=== PATIENT | male | born 1960 | race Caucasian/White ===

== ENCOUNTER → 2020-04-22 09:09 | Outpatient (BNVA) | payer OTHER, SELFPAY | PROVIDERS: PCP Internal Medicine; Visit Provider Physician Assistant ==

== ENCOUNTER 2020-06-13 07:52 | Day surgery (SDC) | payer OTHER, SELFPAY ==
--- NOTE | 2020-06-11 13:58 | P.CONAN_ITS ---
HPI - Anesthesia Eval Consult details Narrative: 60yo M for Colonoscopy PMFSH Active Problems Active Problems: All Active Problems (Updated 06/09/20 @ 13:04 by Tonia Gould) Encounter for screening colonoscopy (Acute) Past Medical History Medical History History of COVID-19 Family History Family History (Updated 04/22/20 @ 09:15 by Layla Osorio CMA) Mother Diverticulitis Father Hypertension Surgical History Surgical History H/O colonoscopy Social History Social History (Updated 04/22/20 @ 09:12 by Layla Osorio CMA) Household Members: Children Alcohol intake: current Alcohol intake frequency: a few times a week Alcohol type: beer Smoking Status: Never smoker Use of substances other than those prescribed or required for medical reasons: Yes Substance Use Type: Marijuana Substance Use Type Other:: last dose marijuana yesterday Substance Use Frequency: Daily Advance Directives: No Advance Directives Information Provided: Yes Current occupational status: employed 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
[2020-06-13 08:15] VITALS: BMI 22.3
[2020-06-13 08:18] VITALS: BP 145/90; PULSE 87; RESP 16; TEMP 36.8; O2SAT 100
[2020-06-13] MEDS: Lactated Ringers 1,000 ML 100 ML IVCONT (08:23)
--- NOTE | 2020-06-13 08:36 | P.OP_ITS ---
Operative Note Operative Note Date of Service: 06/13/20 Narrative: Pre-op diagnosis: Colon cancer screening Post-op diagnosis: other (Colon polyps, diverticulosis, hemorrhoids) Procedure: COLONOSCOPY TILL CECUM WITH BIOPSIES AND SNARE POLYPECTOMY Consent: Indications for the procedure and potential complications of bleeding, perforation, reaction to medications and missed diagnosis were discussed with the patient and informed consent was obtained. Instrument: Olympus PCF H 190 L variable stiffness pediatric colonoscope Monitoring: Vital signs and clinical assessment, intermittent blood pressure monitoring, continuous EKG monitoring, Pulse oximetry and Carbon Dioxide monitoring were done throughout the procedure. Colon withdrawl time was 21 minutes. Procedure: The patient was placed in the left lateral decubitis position and pre-procedure medications were administered. After a digital rectal examination of the ano-rectum, the video colonoscope was inserted into the rectum and advanced through the colon to the cecum. The colonoscope was slowly withdrawn in a retrograde panoramic fashion and the colon mucosa was carefully examined including a retroflexed view of the rectum. Findings and interventions are described below. Procedure Difficulty: Without difficulty Findings: Terminal Ileum: Not evaluated Cecum: Normal Ascending Colon: A 4-5 mm sessile polyp in proximal ascending colon removed with cold biopsy Transverse Colon: A 10 mm sessile polyp in the transverse colon removed with a cold snare Descending Colon: Normal Sigmoid Colon: A 12-15 mm sessile polyp removed with a hot snare. Moderate diverticulosis Rectum: Normal Ano-rectum: Moderate internal hemorrhoids Colon preparation: Good after some irrigation Impression and Post Procedure Diagnosis: Colonoscopy Findings: Three small to medium sized polyps removed Moderate diverticulosis seen in the sigmoid colon Moderate hemorrhoids on retroflexed exam. Plan: Await pathology results Patient has an appointment on 07/03/20 in the [facility] with HELDER Timmons. Repeat Colonoscopy interval based on path results - in 3 years if polyps are adenomatous and 10 years if polyps are hyperplastic. Above findings were reviewed with the patient and colon polyps and diverticulosis handouts were given in the discharge area Surgeon: Angus Bowen MD Anesthesia: MAC (Sera Lozano CRNA) and spinal Customer Care Professional: Denise Tsai Estimated blood loss (mL): 0 Pathology: other (A: ASCENDING COLON POLYP B: TRANSVERSE COLON POLYP C: SIGMOID POLYP) Condition: stable Disposition: PACU
--- NOTE | 2020-06-13 08:36 | MHC.SHP ---
Pre-Procedural Eval Section A The patient is an INPATIENT: No The History & Physical has been completed within 30 days and I have reviewed it.: No Section B Chief Complaint: Screening Details of Present Illness: Pleasant, healthy 60-year-old male referred for screening colonoscopy. He has no GI complaints. Relevant Family History (Specify if Yes): Yes Relevant Social History: Other (specify) (smokes Marijuana) Present Medications: see Short Stay Collaborative assessment History of Previous Operations: Relevant previous surgery/procedure and date(s) (Colonoscopy) Allergies: Allergies Allergy/AdvReac Type Severity Reaction Status Date / Time No Known Allergies Allergy Verified 04/22/20 09:10 Review of Systems Sugical H&P ROS: Negative: Constitution, Cardiovascular, Respiratory and Gastrointestinal Exam Surgical H&P Exam: Normal: Heart, Normal: Lungs, Normal: Extremities and Normal: Abdomen Plan Diagnosis/Plan: Unchanged I have reviewed the history and physical and performed a pertinent physical examination on my patient. No changes have occurred unless specified.
[2020-06-13 09:41] VITALS: BP 117/73; PULSE 85; RESP 16; TEMP 37.1; O2SAT 99
[2020-06-13 09:56] VITALS: BP 148/89; PULSE 74; RESP 18; TEMP 37.1; O2SAT 100
== END 2020-06-13 11:13 | disposition home or self-care (01) ==
PROVIDERS: PCP Internal Medicine; Visit Provider Internal Medicine Gastroenterology
PROC: 0DJD8ZZ Inspection of Lower Intestinal Tract, Via Natural or Artificial Opening Endoscopic (ICD-10-PCS; CPT 45378; principal; 2020-06-13 09:00)
DX: Z12.11 Encounter for screening for malignant neoplasm of colon (principal); D12.2 Benign neoplasm of ascending colon; D12.3 Benign neoplasm of transverse colon; D12.5 Benign neoplasm of sigmoid colon; K57.30 Diverticulosis of large intestine without perforation or abscess without bleeding; K64.8 Other hemorrhoids; Z86.16 Personal history of COVID-19; F12.90 Cannabis use, unspecified, uncomplicated
CPT/HCPCS: 45385; 45380; 88305

== ENCOUNTER → 2020-07-03 10:35 | Outpatient (BNVA) | payer OTHER, SELFPAY | PROVIDERS: PCP Internal Medicine; Visit Provider Physician Assistant ==

== ENCOUNTER 2023-07-04 08:17 | Outpatient (REF) | payer OTHER, SELFPAY ==
[2023-07-04 14:16] LABS: MANUAL DIFF FLAG NO
[2023-07-04 14:19] LABS: Basophils Percent Auto 0.5 % (0-2); Eosinophils Absolute Auto 0.1 X10*3/uL (0.0-0.4); Eosinophils Percent Auto 1.8 % (0-4); Hematocrit 44.4 % (42.0-52.0); Imm Gran Abs Auto 0.02 X10*3/uL (0.00-0.03); Imm Gran Pct Auto 0.3 % (0.0-0.4); Lymphocytes Absolute Auto 1.7 X10*3/uL (1.2-4.9); Lymphocytes Percent Auto 21.3 % (20-40); Mean Corpuscular HGB Conc 33.8 g/dl (31.0-36.0); Mean Corpuscular Hemoglobin 30.7 pg (27.0-33.0); Mean Corpuscular Volume 90.8 fL (80.0-98.0); Mean Platelet Volume 10.6 fL (9.4-12.4); Monocytes Absolute Auto 0.5 X10*3/uL (0.1-1.2); Monocytes Percent Auto 6.8 % (2-11); Neutrophils Absolute Auto 5.4 x10*3/uL (2.0-8.3); Neutrophils Percent Auto 69.3 % (45-73); Platelet Count 328 X10*3/uL (160-400); Red Blood Count 4.89 X10*6/uL (4.60-5.80); Red Cell Distribution Width 12.7 % (11.0-16.0); White Blood Count 7.8 X10*3/uL (4.8-10.8)
[2023-07-04 14:46] LABS: Alanine Aminotransferase 17 U/L (0-40); Albumin Level 4.4 g/dL (3.5-5.0); Alkaline Phosphatase 64 U/L (39-117); Anion Gap 13 (12-20); Aspartate Amino Transferase 18 U/L (5-37); Bilirubin Total 0.5 mg/dL (0.0-1.0); Blood Urea Nitrogen 20 mg/dL (9-16); Carbon Dioxide 30 mmol/L (22-29); Chloride 100 mmol/L (96-108); Cholesterol 215 mg/dL (<200); Estimated Glomerular Filt Rate > 60; Glucose Random 108 mg/dL (60-115); HDL Cholesterol 87 mg/dL (>40); LDL Cholesterol Calculated 117 mg/dL (<100); Potassium 4.1 mmol/L (3.3-5.1); Sodium 139 mmol/L (135-145); Total Protein 7.2 g/dL (6.5-8.0); Triglycerides 55 mg/dL (<150)
[2023-07-04 14:50] LABS: TSH reflex Free T4 0.22 uIU/mL (0.32-4.0)
[2023-07-04 15:22] LABS: Free T4 (Free Thyroxine) 1.13 ng/dL (0.71-1.85)
== END 2023-07-04 08:18 | disposition home or self-care (01) ==
LOC: HO.CHCLDS 08:17
PROVIDERS: Visit Provider Family Medicine
DX: I10 Essential (primary) hypertension (principal)
CPT/HCPCS: 36415; 80053; 80061; 84439; 84443; 85025

== ENCOUNTER 2023-07-09 09:25 | Outpatient (REF) | payer BC, SELFPAY ==
[2023-07-09 10:59] LABS: Free T4 (Free Thyroxine) 1.18 ng/dL (0.71-1.85); TSH reflex Free T4 0.22 uIU/mL (0.32-4.0)
[2023-07-11 18:49] LABS: Thyroid Peroxidase Antibodies 137 IU/mL (<9)
[2023-07-13 15:53] LABS: Thyroid Stimulating Immunoglob <89 % baseline (<140)
[2023-07-14 20:09] LABS: Thyrotropin Receptor Antibody <1.00 IU/L (<=2.00)
== END 2023-07-09 09:26 | disposition home or self-care (01) ==
LOC: HO.LAB 09:25
PROVIDERS: PCP Internal Medicine; Visit Provider Family Medicine
DX: R79.89 Other specified abnormal findings of blood chemistry (principal)
CPT/HCPCS: 36415; 83520; 84439; 84443; 84445; 86376

== ENCOUNTER 2023-10-26 09:58 | Outpatient (REF) | payer BC, SELFPAY ==
[2023-10-26 14:47] LABS: MANUAL DIFF FLAG NO
[2023-10-26 14:52] LABS: Basophils Percent Auto 0.4 % (0-2); Eosinophils Absolute Auto 0.1 X10*3/uL (0.0-0.4); Eosinophils Percent Auto 1.2 % (0-4); Hematocrit 47.2 % (42.0-52.0); Hemoglobin 15.9 g/dl (14.0-18.0); Imm Gran Abs Auto 0.03 X10*3/uL (0.00-0.03); Imm Gran Pct Auto 0.4 % (0.0-0.4); Lymphocytes Absolute Auto 1.9 X10*3/uL (1.2-4.9); Lymphocytes Percent Auto 27.5 % (20-40); Mean Corpuscular HGB Conc 33.7 g/dl (31.0-36.0); Mean Corpuscular Hemoglobin 30.3 pg (27.0-33.0); Mean Corpuscular Volume 90.1 fL (80.0-98.0); Mean Platelet Volume 10.9 fL (9.4-12.4); Monocytes Absolute Auto 0.5 X10*3/uL (0.1-1.2); Neutrophils Absolute Auto 4.2 x10*3/uL (2.0-8.3); Neutrophils Percent Auto 62.5 % (45-73); Platelet Count 278 X10*3/uL (160-400); Red Blood Count 5.24 X10*6/uL (4.60-5.80); Red Cell Distribution Width 12.3 % (11.0-16.0); White Blood Count 6.8 X10*3/uL (4.8-10.8)
[2023-10-26 15:23] LABS: Alanine Aminotransferase 16 U/L (0-40); Albumin Level 4.5 g/dL (3.5-5.0); Alkaline Phosphatase 73 U/L (39-117); Anion Gap 12 (12-20); Aspartate Amino Transferase 17 U/L (5-37); Bilirubin Total 0.4 mg/dL (0.0-1.0); Blood Urea Nitrogen 17 mg/dL (9-16); Carbon Dioxide 33 mmol/L (22-29); Chloride 99 mmol/L (96-108); Cholesterol 190 mg/dL (<200); Estimated Glomerular Filt Rate > 60; Glucose Random 137 mg/dL (60-115); HDL Cholesterol 96 mg/dL (>40); LDL Cholesterol Calculated 85 mg/dL (<100); Potassium 4.5 mmol/L (3.3-5.1); Sodium 139 mmol/L (135-145); TSH reflex Free T4 0.25 uIU/mL (0.32-4.0); Total Protein 7.4 g/dL (6.5-8.0); Triglycerides 48 mg/dL (<150); Vitamin D 25-OH Total 69.2 ng/mL (>30)
[2023-10-26 18:25] LABS: Free T4 (Free Thyroxine) 1.01 ng/dL (0.71-1.85)
[2023-10-27 04:13] LABS: ~HepC Num1 0.15 S/CO (0.00-0.79); ~Hepatitis C Antibody Nonreactive (Nonreactive)
== END 2023-10-26 09:59 | disposition home or self-care (01) ==
LOC: HO.CHCLDS 09:58
PROVIDERS: Visit Provider Internal Medicine
DX: R53.83 Other fatigue (principal)
CPT/HCPCS: 36415; 80053; 80061; 82306; 84439; 84443; 85025; 86803

== ENCOUNTER 2024-02-03 07:56 | Outpatient (AMB) | payer BC, SELFPAY ==
[2024-02-03 08:03] VITALS: BP 152/94; PULSE 76; O2SAT 98; BMI 22.2
--- NOTE | 2024-02-03 08:03 | A.OFFVIS_ITS ---
Vital Signs 02/03/24 08:03 Height 5 ft 11 in Weight 159 lb 2.78 oz BMI 22.2 BP 152/94 H Blood Pressure Location Rt brachial Position Sitting Pulse 76 Pulse Source Pulse Oximeter Pulse Oximetry (%) 98 Oxygen Delivery Method Room Air Intake Visit Reasons: Colonoscopy Screening Intake Note: Eleazar presents in office today for a scheduled colo scrn. CC; No significant changes. ? Recent hx of relevant surgeries? Recall colo q3 yrs per RM. Pharmacy verified. [employer] Required: No Allergies No Known Allergies Allergy (Verified 02/03/24 08:03) HPI HPI Colonoscopy Screening: Details: LAST VISIT: Colonoscopy Findings: Three small to medium sized polyps removed Moderate diverticulosis seen in the sigmoid colon Moderate hemorrhoids on retroflexed exam. Plan: Repeat Colonoscopy interval based on path results - in 3 years if polyps are adenomatous and 10 years if polyps are hyperplastic. Above findings were reviewed with the patient and colon polyps and diverticulosis handouts were given in the discharge area PATHOLOGY RESULTS: Diagnosis A. Colon, ascending, polypectomy: Tubular adenoma; negative for high grade dysplasia and carcinoma. B. Colon, transverse, polypectomy: Tubular adenoma; negative for high grade dysplasia and carcinoma. C. Colon, sigmoid, polypectomy: Tubular adenoma; negative for high grade dysplasia and carcinoma TODAY'S VISIT Patient denies any gastrointestinal symptoms in the past or at present.? Family history of CRC. Patient had colonoscopy 3 years ago and had tubular adenoma without high-grade dysplasia or carcinoma..? Denies history of difficulty with sedation or anesthesia in the past.? Negative for history of sleep apnea.? Denies any history of cardiac, renal, pulmonary, or hepatic disease.?? No history of infectious? diseases like hepatitis A, B, C, HIV or tuberculosis.? 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 Review of Systems Const Denies weight gain and Denies weight loss ENT Reports no additional complaints, Denies dysphagia and Denies odynophagia Card Reports no additional complaints Resp Reports no additional complaints GI Denies abdominal pain, Denies belching, Denies melena, Denies bloating, Denies change in bowel habits, Denies dysphagia, Denies excessive flatus, Denies dyspepsia, Denies heartburn, Denies diarrhea, Denies loose stools, Denies nausea, Denies odynophagia and Denies vomiting Reports no additional complaints Musc Reports no additional complaints Neuro Reports no additional complaints Psych Reports no additional complaints Endo Reports no additional complaints Physical Exam Vital Signs: Last Vital Signs Pulse 76 02/03/24 08:03 BP 152/94 H 02/03/24 08:03 Pulse Ox 98 02/03/24 08:03 Oxygen Delivery Method Room Air 02/03/24 08:03 BMI result Body Mass Index 22.2 Const General: healthy appearing, no acute distress and well developed Nutritional Appearance: well nourished Orientation/consciousness: patient oriented x3 Resp Effort & Inspection: normal respiratory effort, able to speak in complete sentences, no tracheal deviation and symmetric chest movement Auscultation: clear to auscultation bilaterally Cardio Rate: regular rate GI Inspection: Yes normal to inspection and No distended Palpation (GI): Soft to palpation, not firm, nontender and No hepatosplenomegaly present Auscultation: normal bowel sounds General: Yes no CVA tenderness Back/Spine/Pelvis Back: no CVA tenderness Skin General skin exam: elasticity normal, turgor normal and dry skin Neuro General: patient oriented x3 Psych Appearance: grossly normal Mental Status: mental status grossly normal Assessment & Plan Assessment & Plan (1) Tubular adenoma of colon: Code(s): D12.6 - Benign neoplasm of colon, unspecified Category: Medical (2) Encounter for screening colonoscopy: Code(s): Z12.11 - Encounter for screening for malignant neoplasm of colon Category: Medical Plan Patient denies any GI, cardiac or respiratory symptoms.? Denies any issues with anesthesia in the past.? Denies any history of sleep apnea.? No history infectious diseases in the past or present.? Not on any anticoagulation therapy.? Family history of CRC. Personal history of tubular adenoma in 2020. Patient denies melena, hematochezia, unintentional weight loss or ribbon like stools.? Discussed at length the pre-procedure,? prep, diet & medications as well as what to expect prior, during and after the procedure.?? Stressed the importance of good bowel prep.? Recommended the use of Vaseline or Calmoseptine OTC & baby wipes with bowel movements to promote comfort.? ?Patient verbalizes understanding and agrees to plan of care.? He was given the opportunity to ask questions and all questions answered.? We will see him after the procedure.? Medications: New bisacodyl (Dulcolax (bisacodyl)) take 4 tabs at noon the day before your colonoscopy 20 mg (4 x 5 mg) PO ONCE 1 day 4 tabs 0RF Z12.11 - Encounter for screening for malignant neoplasm of colon polyethylene glycol 3350 (Miralax) As directed by gastroenterology department at [facility] 238 grams PO ONCE 238 grams 0RF Z12.11 - Encounter for screening for malignant neoplasm of colon Coding Level of Care Code New Pt Level 3 (70116) Diagnoses Tubular adenoma of colon D12.6 Encounter for screening colonoscopy Z12.11 Time Spent (min) 40 Comment 30 minutes spent with patient and additional 10 minutes spent reviewing his records
== END 2024-02-03 08:31 | disposition home or self-care (01) ==
PROVIDERS: PCP Internal Medicine; Visit Provider Nurse Practitioner Family
DX: D12.6 Benign neoplasm of colon, unspecified (principal); Z12.11 Encounter for screening for malignant neoplasm of colon
CPT/HCPCS: 99203

== ENCOUNTER → 2024-02-03 07:56 | Outpatient (BNVA) | payer BC, SELFPAY | PROVIDERS: PCP Internal Medicine; Visit Provider Nurse Practitioner Family ==

== ENCOUNTER 2024-05-03 07:24 | Day surgery (SDC) | payer BC, SELFPAY ==
[2024-05-01 14:37] VITALS: BMI 22.2
--- NOTE | 2024-05-02 09:33 | HO.ANESPROP2 ---
Documented by User: Winter Mcwilliams NP 05/02/24 09:33 HPI - Anesthesia Eval Consult details Narrative: 64yo M for Colonoscopy [facility] Active Problems Active Problems: All Active Problems Diverticulosis of colon (Acute) Encounter for screening colonoscopy (Acute) Hemorrhoids (Acute) Tubular adenoma of colon (Acute) Past Medical History Medical History (Updated 05/01/24 @ 14:38 by Tonia Gould RN) Diverticulosis HTN (hypertension) Hemorrhoids Tubular adenoma of colon Family History Family History Mother Diverticulitis Father Hypertension Surgical History Surgical History (Updated 05/01/24 @ 14:37 by Tonia Gould RN) H/O colonoscopy Social History Social History Household Members: Children Household Members Other:: Daughter Alcohol intake: current Alcohol intake frequency: a few times a month Substance Use Type: Marijuana Advance Directives: No Advance Directives Information Provided: Yes Current occupational status: employed 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 Meds Allergies Allergy/AdvReac Type Severity Reaction Status Date / Time No Known Allergies Allergy Verified 05/03/24 07:37 Home Medications ?Medication ?Instructions ?Recorded ?Confirmed ?Last Taken ?Type lisinopril 5 mg tablet 5 mg PO DAILY 02/03/24 05/01/24 Unknown History Exam Height,Weight and Vital Signs: Height 5 ft 11 in Weight 72.121 kg Assessment and Plan Assessment Anesthesia Assessment: Chart Reviewed Documented by User: Colton Briggs MD 05/03/24 07:57 [facility] Past Medical History Medical History (Updated 05/01/24 @ 14:38 by Tonia Gould RN) Diverticulosis HTN (hypertension) Hemorrhoids Tubular adenoma of colon Family History Family History Mother Diverticulitis Father Hypertension Family history of problems with anesthesia: No Surgical History Surgical History (Updated 05/01/24 @ 14:37 by Tonia Gould RN) H/O colonoscopy History of Problems with Anesthesia: No Social History Social History Household Members: Children Household Members Other:: Daughter Alcohol intake: current Alcohol intake frequency: a few times a month Substance Use Type: Marijuana Advance Directives: No Advance Directives Information Provided: Yes Current occupational status: employed 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 Meds Allergies Allergy/AdvReac Type Severity Reaction Status Date / Time No Known Allergies Allergy Verified 05/03/24 07:37 Home Medications ?Medication ?Instructions ?Recorded ?Confirmed ?Last Taken ?Type lisinopril 5 mg tablet 5 mg PO DAILY 02/03/24 05/01/24 Unknown History Exam Airway Mallampati Class: I TM Dist: >3cm Neck ROM: Full Loose/Missing/Broken Teeth: No Heart: ok Lungs: ok Assessment and Plan Assessment Anesthesia Assessment: Anesthesia Plan Discussed Final Anesthetic Review Family History of Problems with Anesthesia: No History of Problems with Anesthesia: No NPO: Yes ASA Class: II Final Preanesthetic Review: No Changes in Pt Med Stat, Meds/Allgs Chart Reviewed, Consent Obtained/Reviewed and Anes Risks/Benef Reviewed Patient Risk: Low Procedure Risk: Low Anesthetic Plan Anesthetic Plan: MAC: and Agree w/ Assess. and Plan Disposition: Standard PACU
[2024-05-03 07:29] VITALS: BMI 21.7
[2024-05-03] MEDS: Lactated Ringers 1,000 ML 100 ML IVCONT (07:42)
--- NOTE | 2024-05-03 07:43 | MHC.SHP ---
Pre-Procedural Eval Section A - 24 Hr Update-Section A only Date of Service: 05/03/24 Section B - Complete if H&P > 30 days Chief Complaint: screening Relevant Family History (Specify if Yes): No Relevant Social History: Other (specify) (thc) Present Medications: see Short Stay Collaborative assessment Medical History: Significant History (Diverticulosis HTN (hypertension) Hemorrhoids Tubular adenoma of colon) History of Previous Operations: Relevant previous surgery/procedure and date(s) (H/O colonoscopy) Allergies: Allergies Allergy/AdvReac Type Severity Reaction Status Date / Time No Known Allergies Allergy Verified 05/03/24 07:37 Review of Systems Sugical H&P ROS: Negative: Constitution, Cardiovascular, Respiratory, Neurological, Psychiatric, Hem-Onc, Allergic/Immunologic, Gastrointestinal, Genitourinary, Musculoskeletal, Integumentary, Endocrine and Eyes/Ears/Nose/Throat Exam Surgical H&P Exam: Normal: HEENT, Normal: Heart, Normal: Lungs, Normal: Extremities, Normal: Abdomen, Normal: Skin and Normal: Neurological Plan Diagnosis/Plan: Unchanged I have reviewed the history and physical and performed a pertinent physical examination on my patient. No changes have occurred unless specified. Time Spent With Patient Time: Total time managing care of this patient today ____ minutes.
[2024-05-03 07:50] VITALS: BP 145/91; PULSE 82; RESP 18; TEMP 36.7; O2SAT 99
--- NOTE | 2024-05-03 08:48 | P.OPN-COLO_ITS ---
Colonoscopy Operative Note Operative Note Date of Service: 05/03/24 Narrative: Operative Information Procedure Description: Colonoscopy Indication: screening, hx of polyps Anesthesia: MAC COLONOSCOPY Instrument: Olympus variable stiffness pediatric scope 190L Colonoscopy Monitoring: Vital signs and clinical assessment, continuous EKG monitoring, Pulse oximetry, Carbon Dioxide monitoring and blood pressure monitoring were done throughout the procedure. Colon withdrawal time was 22 minutes. Procedure: The patient was placed in the left lateral decubitis position and pre-procedure medications were administered. After a digital rectal examination of the ano-rectum, the video colonoscope was inserted into the rectum and advanced through the colon to the cecum/TI. The colonoscope was slowly withdrawn in a retrograde panoramic fashion and the colon mucosa was carefully examined including a retroflexed view of the rectum. Findings and interventions are described below. Procedure Difficulty: moderate Findings: Terminal Ileum-normal Cecum: 4-5 mm sessile polyp removed with forceps, x 1 clip applied to close defect Ascending Colon: normal Transverse Colon -normal Descending Colon:normal Sigmoid Colon: moderate diverticulosis, 6-8 mm sessile polyp removed with cold snare Rectum: Retroflexion with small internal hemorrhoids seen, grade I, x 5 sessile polyps 6-9 mm removed with cold snare Anorectum - normal Intervention: cold snare, cold forceps, clip Colon preparation: [place] Bowel Preparation Scale Right colon; 2 Transverse colon: 2 Left colon; 2 (0 = Unprepared colon segment with mucosa not seen due to solid stool that cannot be cleared. 1 = Portion of mucosa of the colon segment seen, but other areas of the colon segment not well seen due to staining, residual stool and/or opaque liquid. 2 = Minor amount of residual staining, small fragments of stool and/or opaque liquid, but mucosa of colon segment seen well. 3 = Entire mucosa of colon segment seen well with no residual staining, small fragments of stool or opaque liquid) Impression and Post Procedure Diagnosis: diverticulosis colon polyps x 7 internal hemorrhoids Plan: High fiber diet leaflet Avoid straining at stool, epsom salts and sitz bath, anusol supps or cream Repeat Colonoscopy in 3-4 years or earlier if clinically indicated Above findings were reviewed with the patient and relevant handouts were provided if indicated.
[2024-05-03 08:54] VITALS: BP 89/64; PULSE 82; RESP 20; TEMP 36.6; O2SAT 96
[2024-05-03 09:09] VITALS: BP 130/87; PULSE 88; RESP 16; TEMP 36.3; O2SAT 99
== END 2024-05-03 09:42 | disposition home or self-care (01) ==
PROVIDERS: PCP Internal Medicine; Visit Provider Internal Medicine Gastroenterology
PROC: 0DJD8ZZ Inspection of Lower Intestinal Tract, Via Natural or Artificial Opening Endoscopic (ICD-10-PCS; CPT 45378; principal; 2024-05-03 09:10)
DX: Z12.11 Encounter for screening for malignant neoplasm of colon (principal); K63.5 Polyp of colon; K62.1 Rectal polyp; K57.30 Diverticulosis of large intestine without perforation or abscess without bleeding; K64.0 First degree hemorrhoids; Z86.0101 Personal history of adenomatous and serrated colon polyps; I10 Essential (primary) hypertension; Z79.899 Other long term (current) drug therapy
CPT/HCPCS: 45385; 45380; 88305; J1610; J2003; J2704

== ENCOUNTER → 2024-05-03 07:24 | Outpatient (BNV) | payer BC, SELFPAY | PROVIDERS: PCP Internal Medicine; Visit Provider Internal Medicine Gastroenterology | DX: Z12.11 Encounter for screening for malignant neoplasm of colon (principal); Z86.0100 Personal history of colon polyps, unspecified; K63.5 Polyp of colon; K62.1 Rectal polyp; K57.30 Diverticulosis of large intestine without perforation or abscess without bleeding; K64.0 First degree hemorrhoids | CPT/HCPCS: 45380; 45385 ==

== ENCOUNTER 2025-02-26 08:12 | Outpatient (REF) | payer BC, SELFPAY ==
--- OUTSIDE RECORDS SUMMARY | 2025-02-26 09:44 | XMS_ITS | Clinical Summary ---
Author Organization [employer] Address [address] [facility] 7t [place] [address] Care Team Providers Care Vibration Analyst Name Role Phone Doris Negron MD Primary Care Provider [phone] Allergies No known active allergies Medications Blood Pressure kitIndications:El evated BP without diagnosis of hypertension Check bp twice a day 1 kit 2 Active cyclobenzaprine (Flexeril) 10 MG tabletIndications :Right sided sciatica Take 1 tablet (10 mg) by mouth 3 times daily for 10 days. 30 tablet 5 Active lisinopril 5 MG tabletIndications :Primary hypertension TAKE 1 TABLET DAILY 90 tablet 1 5 Active Diclofenac Sodium 1 % gelIndications:Ri ght lateral epicondylitis To apply to the affected area 3 times a day 100 g 5 Active carbamide peroxide (Debrox) 6.5 % otic solutionIndicatio ns:Bilateral impacted cerumen Administer 5-10 drops into affected ear(s) 2 times daily for 4 days. 30 mL 5 025 Active Problems Problem Noted Date Diagnosed Date Primary hypertension 01/18/2023 Assessment & Plan (06/15/2023 2:42 AM EDT): -Refilled Lisinopril; ordered labs to reassess with plan to change treatment plan if needed based on results Labs: CBC, CMP, TSH, Lipid panel, albumin Diverticular disease 04/27/2022 Elevated BP without diagnosis of hypertension Overview (02/24/2022): Repeat BP taken rosario was 150/90. Agrees to RTC in 4 weeks with BP log , BP kit sent [facility] pharmacy for him to cotton picker, low salt diet recommended as well.No Assessment & Plan (11/11/2022 9:09 AM EDT): Pt reports his BP is returning to normal with exercise Decreased dose to 1 tablet 12.5 mg daily Basal cell carcinoma of skin 02/13/2020 Hypercholesterolemia 02/13/2020 Polyp of colon 02/13/2020 Plantar fasciitis 07/28/2017 Alcoholism (CMS/HCC) 07/27/2013 Encounters Date Type Department Care Team Description 02/18/2025 9:30 AM EST Office Visit [facility] [address] [place] [address] Doris Negron MD Primary hypertension (Primary Dx); Hypercholesterolemia; Right lateral epicondylitis; Acute pain of right knee; Decreased hearing of both ears; Bilateral impacted cerumen; Seborrheic keratosis 02/18/2025 Travel 02/11/2025 Patient Outreach [facility] [address] [place] [address] Doris Negron MD Pre-visit Planning ([facility] to reach [facility] ) 02/11/2025 Travel 01/07/2025 Refill [facility] [address] [place] [address] Doris Negron MD Primary hypertension from Last 3 Months Immunizations Immunization Administration Dates Next Due Influenza Injectable Quadriv alant Preservative Free IIV4 MDCK 12/30/2022,12/09/2021,12/04/2018 Influenza injectable quadriv alent IIV4 with preservative 11/10/2017 Influenza injectable quadriv alent preservative free 12/02/2020,12/11/2019,12/24/2016,2015 Influenza, High Dose Seasona l, Preservative Free 12/26/2023 Influenza, IIV3, injectable 12/31/2009 Influenza, seasonal, injecta ble, preservative free 12/22/2016,01/10/2015 Pneumococcal Conjugate PCV 20 10/26/2023 Tdap 06/23/2018,10/31/2009 Zoster, Recombinant 05/02/2020,12/11/2019 Family History Medical History Relation Name Comments Alcohol abuse Brother Dementia Brother Arrhythmia Father pace maker Relation Name Status Comments Brother Father pace maker Mother Other Social History Tobacco Use Types Packs/Day Years Used Date Smoking Tobacco: Never Smokeless Tobacco: Never Tobacco Cessation:Counseling Given: Not Answered Alcohol Use Standard Drinks/Week Comments Yes 2 (1 standard drink = 0.6 oz pur e alcohol) Alcohol Answer Date Recorded Q1: How often do you have a drink containing alc ohol? 5 12/26/2023 Q2: How many drinks containi ng alcohol do you have on a typical day when you are drinking? 2 12/26/2023 Q3: How often do you have six or more drinks on one occasion? 2 12/26/2023 Depression Answer Date Recorded Patient Health Questionnaire-9 Score 0 02/18/2025 Patient Health Questionnaire-9 Score 0 02/18/2025 Last PHQ-9: Questionnaire Data Not on file 1 04/21/2024 Housing Stability Answer Date Recorded What is your housing situation today? I have nicolasneri rosas 02/18/[address] you li ve. Do you have problems with any of the following? None of the above 02/18/2025 Food Insecurity Answer Date Recorded Within the past 12 months, y ou worried that your food would run out before you got money to buy more: Never True 02/18/2025 Within the past 12 months,th e food you bought just didn't last and you didn't have enough money to get more: Never True Transportation Answer Date Recorded In the past 12 months, has l ack of transportation kept you from medical appts, meetings, work or from getting things needed for daily living? No 02/18/2025 Utilities Answer Date Recorded In the past 12 months, has t he electric, gas, oil or water company threatened to shut off services in your home? No 02/18/2025 Depression Answer Date Recorded Patient Health Questionnaire-2 Score 0 02/18/2025 Internet Access Answer Date Recorded Internet Access Q1 Yes 02/18/2025 Internet Access Q2 Not on file 02/18/2025 Sex and Gender Information Value Date Recorded Sex Assigned at Male 12/28/2021 10:21 AM EDT Legal Sex Male 10:21 AM EDT Gender Identity Male 12/28/2021 10:21 AM EDT Sexual Orientation Straight 12/28/2021 10 :21 AM EDT Last Filed Vital Signs Vital Sign Reading Time Taken Comments Blood Pressure 131/73 02/18/2025 9:32 AM EST Pulse 86 02/18/2025 9:32 AM EST Temperature 36.8 C (98.2 F) 02/18/2025 9:32 AM EST Respiratory Rate 20 02/18/2025 9:32 AM EST Oxygen Saturation 97% 02/18/2025 9:32 AM EST Inhaled Oxygen Concentration - - Weight 71.7 kg (158 lb) 02/18/2025 9:32 AM EST Height 177.8 cm (5' 10 ) 02/18/2025 9:32 AM EST Body Mass Index 22.67 02/18/2025 9:32 AM EST Plan of Treatment Health Maintenance Due Date Last Done Comments CT Colonography 1960 FIT DNA/Cologuard 1960 FIT 1960 FOBT 1960 Sigmoidoscopy 1960 Alcohol/Substance Use Screening 1970 Derm Melanoma Skin Check 04/13/2024 10/12/2023 COVID-19 Vaccine ( season) 2025 12/19/2024, 01/28/2024, 12/30/2022, Additional history exists Depression Screening 02/18/2026 02/18/2025, 03/16/19 23 SDOH Screening 02/18/2026 02/18/2025 Tobacco Screening 02/18/2026 02/18/2025 Colonoscopy 05/04/2027 05/03/2024, 1207/2023, 06/14/2020 Colorectal Cancer Screening 05/04/2027 DTaP/Tdap/Td Vaccines (3 - Td or Tdap) 06/23/2028 06/23/2018, 10/31/2009 Lipid Panel 10/25/2028 10/26/2023, 05/0 07/2023, 12/02/2020 RSV Patients and Patients Aged 60 years or older (1 - 1-dose 75+ series) 2033 Zoster Vaccines Completed 05/02/2020, 12/11/2019 Hepatitis C Screening Completed 10/26/2023 Pneumococcal Vaccine: 50+ Years Completed 10/26/2023 Influenza Vaccine Completed 12/19/2024, , 12/30/2022, Additional history exists HIB Vaccines Aged Out No longer eligi ble based on patient's age to complete this topic HPV Vaccines Aged Out No longer eligi ble based on patient's age to complete this topic Hepatitis A Vaccines Aged Out No long er eligible based on patient's age to complete this topic Hepatitis B Vaccines Aged Out No long er eligible based on patient's age to complete this topic IPV Vaccines Aged Out No longer eligi ble based on patient's age to complete this topic Meningococcal B Vaccine Aged Out No l onger eligible based on patient's age to complete this topic Meningococcal Vaccine Aged Out No carine elías eligible based on patient's age to complete this topic RSV under 20 months Aged Out No longe r eligible based on patient's age to complete this topic Rotavirus Vaccines Aged Out No longer eligible based on patient's age to complete this topic Procedures Procedure Name Priority Date/Time Associated Diagnosis Comments COLONOSCOPY Routine 05/03/2024 HEPATITIS C AB W/REFL TO HCV RNA, QN, PCR Routine 10/26/2023 9:59 AM EDT Other fatigue LIPID PANEL, STANDARD Routine 10/26/2023 9:59 AM EDT Other fatigue from Last 3 Months or Most Recently Relevant to Health Maintenance Results * Colonoscopy (05/03/2024) Colonoscopy Normal Normal Narrative Ping Reina - 05/03/2024 Repeat Colonoscopy in 3-4 years or earlier if clinically indicated , see external hospital admission note with matching date us Historical Provider HEALTH MAINTENANCE Final Result * Hepatitis C Antibody with Reflex to HCV, RNA, Quantitative, Real-Time PCR (10/26/2023 9:59 AM EDT) Hepatitis C Antibody Nonreactive Nonreactive [facility] Comment:Antibodies to HCV no t detected; does not exclude early acuteHCV infection. Blood Venous blood specimen / Unknown 10/26/2023 9:59 AM EDT 10/26/2023 2:43 PM EDT us Doris Negron MD LAB BLOOD ORDERABLES Final Result Performing Organization Address [facility]/ZIP Co de Phone Number [facility] [address] [place] [phone] * Lipid Panel, Standard (10/26/2023 9:59 AM EDT) Triglycerides 48 <150 mg/dL [facility] Comment:Desirable Triglyceri de: less than 150 mg/dLBorderline High Triglyceride 150-199 mg/dLHigh Triglyceride: 200-499 mg/dLVery High Triglyceride: greater than or equal to 5OO mg/dL Cholesterol 190 <200 mg/dL [facility] Comment:Desirable Cholestero l: less than 200 mg/dLBorderline High Cholesterol: 200-239 mg/dLHigh Cholesterol: greater than 239 mg/dL LDL Cholesterol Calculated 85 <100 mg/dL [facility] Comment:Desirable LDL: less than 100 mg/dLNear Optimal/Above Optimal LDL: 110- 129 mg/dLBorderline High LDL: 130-159 mg/dLHigh LDL: 160-189 mg/dLVery High LDL: greater than or equal to 190 mg/dL HDL Cholesterol 96 >40 mg/dL [facility] Comment:Desirable HDL: great er than 40 mg/dL Note: This HDL assay may give artificially low results in patients with liver disease. Blood Venous blood specimen / Unknown 10/26/2023 9:59 AM EDT 10/26/2023 2:43 PM EDT us Doris Negron MD LAB BLOOD ORDERABLES Final Result Performing Organization Address City/[facility]/ZIP Co de Phone Number [facility] [address] [place] [phone] from Last 3 Months or Most Recently Relevant to Health Maintenance Insurance [facility] PPO Care Teams Vibration Analyst Relationship Specialty Start Date End Date Doris Negron MD [address] [place] [phone] PCP - General Internal Medicine 02/13/20
--- OUTSIDE RECORDS SUMMARY | 2025-02-26 09:44 | XMS_ITS | Encounter Summary ---
Author Organization [employer] Address [address] [facility] 7t [place] [address] Care Team Providers Care Interactive Account Manager Name Role Phone Doris Negron MD Primary Care Provider [phone] Encounter Details Date Type Department Care Team (Late st Contact Info) Description 02/15/2023 Orders Only [facility] [address] [place], [place] [phone] Doris Negron MD [address] [place] [address] Muscle spasm of back (Primary Dx) Social History Tobacco Use Types Packs/Day Years Used Date Smoking Tobacco: Never Smokeless Tobacco: Never Alcohol Use Standard Drinks/Week Comments Yes 2 (1 standard drink = 0.6 oz pur e alcohol) Housing Stability Answer Date Recorded What is your housing situation today? I have nicolasneri rosas 01/18/[address] you li ve. Do you have problems with any of the following? None of the above 01/18/2023 Food Insecurity Answer Date Recorded Within the past 12 months, y ou worried that your food would run out before you got money to buy more: Never True 01/18/2023 Within the past 12 months,th e food you bought just didn't last and you didn't have enough money to get more: Never True Transportation Answer Date Recorded In the past 12 months, has l ack of transportation kept you from medical appts, meetings, work or from getting things needed for daily living? No 01/18/2023 Utilities Answer Date Recorded In the past 12 months, has t he [employer], oil or water company threatened to shut off services in your home? No 01/18/2023 Sex and Gender Information Value Date Recorded Sex Assigned at Male 12/28/2021 10:21 AM EDT Legal Sex Male 10:21 AM EDT Gender Identity Male 12/28/2021 10:21 AM EDT Sexual Orientation Straight 12/28/2021 10 :21 AM EDT documented as of this encounter Plan of Treatment Not on file documented as of this encounter Procedures Procedure Name Priority Date/Time Associated Diagnosis Comments T4, FREE Routine 10/26/2023 9:59 AM EDT Muscle spasm of back T4, FREE Routine 07/09/2023 9:36 AM EDT Muscle spasm of back documented in this encounter Results * T4, Free (10/26/2023 9:59 AM EDT) Free T4 (Free Thyroxine) 1.01 0.71 - 1.85 ng/dL [facility] 10/26/2023 9:59 AM EDT 10/26/2023 2:43 PM EDT us Doris Negron MD LAB BLOOD ORDERABLES Final Result Performing Organization Address [facility] Co de Phone Number [facility] [address] [place] [phone] * T4, Free (07/09/2023 9:36 AM EDT) Free T4 (Free Thyroxine) 1.18 0.71 - 1.85 ng/dL [facility] 07/09/2023 9:36 AM EDT 07/09/2023 9:36 AM EDT us Tuyet Lunsford MD LAB BLOOD ORDERABLES Final Re sult Performing Organization Address [facility]/ZIP Co de Phone Number [facility] [address] [place] [phone] documented in this encounter Visit Diagnoses Diagnosis Muscle spasm of back- Primary documented in this encounter Care Teams Interactive Account Manager Relationship Specialty Start Date End Date Doris Negron MD [address] [place] [phone] PCP - General Internal Medicine 02/13/20 documented as of this encounter
--- OUTSIDE RECORDS SUMMARY | 2025-02-26 09:44 | XMS_ITS | Encounter Summary ---
Author Organization [employer] Address [address] [facility] 7 [place] [address] Care Team Providers Care Barge Master Name Role Phone Doris Negron MD Primary Care Provider [phone] Reason for Visit * Reason Onset Date Comments Order 03/08/2024 Encounter Details Date Type Department Care Team (Late st Contact Info) Description 03/08/2024 Telephone [facility] [address] [place] [address] Doris Negron MD [address] [place] [address] Order Social History Tobacco Use Types Packs/Day Years [...] Answer Date Recorded Patient Health Questionnaire-9 Score 2 10/26/2023 Patient Health Questionnaire-9 Score 2 10/26/2023 Last PHQ-9: Questionnaire Data Not on file 0 10/26/2023 Housing Stability Answer Date Recorded What is your housing situation today? I have nicolas rosas 01/18/[address] you [...] off services in your home? No 01/18/2023 Depression Answer Date Recorded Patient Health Questionnaire-2 Score 0 10/26/2023 Internet Access Answer Date Recorded Internet Access Q1 Yes 10/28/2023 Internet Access Q2 Not on file 10/28/2023 Sex and Gender Information Value Date Recorded Sex Assigned at Male 12/28/2021 10:21 AM EDT Legal Sex Male 10:21 AM EDT Gender Identity Male 12/28/2021 10:21 AM EDT Sexual Orientation Straight 12/28/2021 10 :21 AM EDT documented as of this encounter Miscellaneous Notes * Telephone Encounter - Leonie Larsen - 03/09/2024 9:45 AM EST Referral refaxed * Telephone Encounter - Temitope Amos - 03/08/2024 3:38 PM EST Tc from [facility] pres[facility] for Physical Therapy. Fax number: [phone] documented in this encounter Plan of Treatment Not on file documented as of this encounter Visit Diagnoses Not on filedocumented in this encounter Additional Health Concerns Assessment Noted Time PHQ-9 Depression Total Score: 2 10/26/19 24 9:25 AM EDT documented as of this encounter Care Teams Barge Master Relationship Specialty Start Date End Date Doris Negron MD [address] [place] [phone] PCP - General Internal Medicine 02/13/20 documented as of this encounter
--- OUTSIDE RECORDS SUMMARY | 2025-02-26 09:44 | XMS_ITS | Encounter Summary ---
Author Organization [employer] Address [address] [facility] 7t [place] [address] Care Team Providers Care Emergency Veterinarian Name Role Phone Doris Negron MD Primary Care Provider [phone] Reason for Visit * Reason Comments Med Refill Encounter Details Date Type Department Care Team ([facility] Contact Info) Description 06/14/2023 Refill [facility] [address] [place], [place] [phone] Doris Negron MD [address] [place] [address] Primary hypertension Social History Tobacco Use Types Packs/Day Years [...] documented as of this encounter Visit Diagnoses Diagnosis Primary hypertension Unspecified essential hypertension documented in this encounter Care Teams Emergency Veterinarian Relationship Specialty Start Date End Date Doris Negron MD [address] [place] [phone] PCP - General Internal Medicine 02/13/20 documented as of this encounter
--- OUTSIDE RECORDS SUMMARY | 2025-02-26 09:44 | XMS_ITS | Encounter Summary ---
Author Organization [employer] Address [address] [facility] 7t [place] [address] Care Team Providers Care Power Barker Operator Name Role Phone Doris Negron MD Primary Care Provider [phone] Reason for Referral * Consultation (Routine) - Closed Specialty Diagnoses / Procedures Referred By Contac t Referred To Contact Endocrinology Diagnoses Other fatigue Low TSH level Doris Negron MD [address] [place] [address] Phone: tel: fax: [facility] [address] [facility] 3rd [address] [place], [place] Phone: tel: fax: Referral ID Status Reason Start Date Expiration Date V isits Requested Visits Authorized [id number] Closed Specialty Services Required 10/28/2023 10/27/2024 1 1 Encounter Details Date Type Department Care Team (Late st Contact Info) Description 10/28/2023 Orders Only [facility] [address] [place], [place] [phone] Doris Negron MD [address] [place], [place] [phone] Other fatigue (Primary Dx); Low TSH level Social History Tobacco Use Types Packs/Day Years Used Date Smoking Tobacco: Never Smokeless Tobacco: Never Alcohol Use Standard Drinks/Week Comments Yes 2 (1 standard drink = 0.6 oz pur e alcohol) Depression Answer Date Recorded Patient Health Questionnaire-9 [...] Procedure Name Priority Date/Time Associated Diagnosis Comments HEMATOXYLIN AND EOSIN STAIN Routine 05/03/2024 8:31 AM EST Other fatigue AMB REFERRAL TO ENDOCRINOLOGY Routine 11/30/2023 Other fatigue Low TSH level documented in this encounter Results * Hematoxylin and Eosin Stain (05/03/2024 8:31 AM EST) 05/03/2024 8:31 AM EST 05/03/2024 9:57 AM EST Narrative [facility] - 05/04/2024 5:25 PM EST ----- ------- Name: Eleazar Leyva Age/Sex: 64/M : 1960 Unit#: [id number] Attend Dr: Jack Roque MD Re05/03/24 Status: [facility] Location: [facility] Disch: ----- ------- SPEC : [id number] RECD: 05/03/24 STATUS: AURY MENJIVAR NUM: [id number] CHARLES: 05/03/[address] [facility] [address]: Jack Roque MD ENTERED: 05/03/24 SP TYPE: Surgical OTHR DR: Doris Negron MD ORDERED: HE Stain/9, Gross Micro L4/3 Diagnosis A. Cecum, polypectomy: Colonic mucosa with mild surface hyperplastic changes. B. Colon, sigmoid, polypectomy: Colonic mucosa with mild surface hyperplastic changes. C. Rectum, polypectomies: Hyperplastic mucosal polyps. Clinical History Pre-Op Dx: Screening Post-Op Dx: Colon polyps, diverticulosis, hemorrhoids Microscopic Description A-C. Microscopic sections reviewed. Material Received A. Cecal polyp B. Sigmoid polyp C. Rectal polyps Gross Description Received in three parts. Part A: Received in formalin labeled cecal polyp is a 0.2 cm rogers irregular tissue fragment, submitted in toto in a cassette labeled A. Part B: Received in formalin labeled sigmoid polyp is a 0.9 x 0.5 x 0.15 cm rogers-red rectangular fragment of mucosa. The resected base is inked and specimen sectioned and entirely submitted in a cassette labeled B. Part C: Received in formalin labeled rectal polyp are several rogers and rogers-pink irregular, papular and rectangular tissue fragments ranging from 0.15-0.5 cm, submitted in toto in a cassette labeled C. CEDS CONTINUED ON NEXT PAGE ----- ------- Name: Eleazar Leyva Age/Sex: 64/M : 1960 Unit#: [id number] Attend Dr: Jack Roque MD Re05/03/24 Status: [facility] Location: [facility] Disch: ----- ------- SPEC : [id number] RECD: 05/03/24 STATUS: AURY MENJIVAR NUM: [id number] CHARLES: 05/03/[address] [facility] [address]: Jack Roque MD ENTERED: 05/03/24 SP TYPE: Surgical OTHR DR: Doris Negron MD ORDERED: HE Stain/9, Gross Micro L4/3 Copies To: Doris Negron MD [address] [address] Jack Roque MD [facility] [address] [place] [phone] ----- ------- Signed (signature on file) Grupo Seaman MD 05/04/24 1725 ----- ------- END OF REPORT us Generic External Data Provider LAB BLOOD ORDERAB LES Final Result [facility] [address] [place] [address] [phone] * Referral to Endocrinology (11/30/2023) us Doris Negron MD OUTPATIENT REFERRAL ORDERAB LES Final Result documented in this encounter Visit Diagnoses Diagnosis Other fatigue- Primary Low TSH level documented in this encounter Additional Health Concerns Assessment Noted Time PHQ-9 Depression Total Score: 2 10/26/19 24 9:25 AM EDT documented as of this encounter Care Teams Power Barker Operator Relationship Specialty Start Date End Date Doris Negron MD [address] [place] [phone] PCP - General Internal Medicine 02/13/20 documented as of this encounter
[2025-02-26 15:09] LABS: MANUAL DIFF FLAG NO
[2025-02-26 15:17] LABS: Hematocrit 44.3 % (42.0-52.0); Hemoglobin 14.4 g/dl (14.0-18.0); Imm Gran Abs Auto 0.03 X10*3/uL (0.00-0.03); Imm Gran Pct Auto 0.3 % (0.0-0.4); Lymphocytes Absolute Auto 1.9 X10*3/uL (1.2-4.9); Mean Corpuscular HGB Conc 32.5 g/dl (31.0-36.0); Mean Corpuscular Hemoglobin 29.1 pg (27.0-33.0); Mean Corpuscular Volume 89.5 fL (80.0-98.0); NRBC Abs Auto 0.000 X10*3/uL (0.0-0.012); NRBC Pct Auto 0.0 /100WBC (0.0-0.2); Platelet Count 291 X10*3/uL (160-400); Red Blood Count 4.95 X10*6/uL (4.60-5.80); White Blood Count 9.6 X10*3/uL (4.8-10.8)
[2025-02-26 15:57] LABS: Alanine Aminotransferase 13 U/L (0-40); Albumin Level 4.3 g/dL (3.5-5.0); Alkaline Phosphatase 91 U/L (39-117); Anion Gap 10 (12-20); Aspartate Amino Transferase 19 U/L (5-37); Blood Urea Nitrogen 13 mg/dL (9-16); Calcium 9.6 mg/dL (8.4-10.2); Carbon Dioxide 29 mmol/L (22-29); Chloride 104 mmol/L (96-108); Cholesterol 191 mg/dL (<200); Estimated Glomerular Filt Rate > 60; HDL Cholesterol 75 mg/dL (>40); Potassium 4.2 mmol/L (3.3-5.1); Sodium 139 mmol/L (135-145); Total Protein 7.0 g/dL (6.5-8.0); Triglycerides 86 mg/dL (<150); Uric Acid 4.8 mg/dL (3.4-7.0)
[2025-02-26 16:43] LABS: Free T4 (Free Thyroxine) 1.28 ng/dL (0.71-1.85)
== END 2025-02-26 08:13 ==
LOC: HO.CHCLDS 08:12
PROVIDERS: Visit Provider Internal Medicine
DX: I10 Essential (primary) hypertension (principal); M25.561 Pain in right knee
CPT/HCPCS: 36415; 80053; 80061; 84439; 84443; 84550; 85025